=== PATIENT | male | born 1960 | race Caucasian/White ===

== ENCOUNTER 2017-02-19 14:46 | Emergency (ER) | payer SELFPAY ==
[~2017-02-19] VITALS: Ht 175.3 cm; Wt 80.0 kg
[2017-02-19 14:48] VITALS: BP 139/83; PULSE 84; RESP 17; TEMP 98.2; O2SAT 96
--- NOTE | 2017-02-19 14:51 | PD ---
Physical Exam Time Seen by Provider: 14:49 Narrative 56yo M c/o left bicep pain x couple weeks after injuring from moving a dresser. Has full ROM of extremity. Is concerned he tore his tendon. Patient seen in triage. VS reviewed. Awaiting bed placement. Data Data Last Documented VS Vital Signs Date Time Temp Pulse Resp B/P (MAP) Pulse Ox O2 Delivery O2 Flow Rate FiO2 02/19/17 14:48 98.2 84 17 139/83 (101) 96 Nasal Cannula [facility] Supervised Visit with NANI: Elisha Ohara Feb 19, 2017 14:51
--- NOTE | 2017-02-19 15:31 | PD ---
HPI Chief Complaint: Injury Time Seen by Provider: 15:21 Travel History International Travel<30 days: No Contact w/Intl Traveler<30days: No Traveled to known affect area: No History of Present Illness HPI 56-year-old male presents to emergency Department with injury to the left bicep partially 2 weeks ago while moving a desk. Patient felt a tear and noticed some ecchymosis in the area afterwards. He is to have a deformity in the bicep as well as tenderness at the injury area. Range of motion is full without weakness. Patient states the pain is constant and worse with motion. He has been using #2 ibuprofen 3-4 times daily. He has no known drug allergies. [facility] Social History Alcohol Use: Yes Tobacco Use: No Substance Use: No Allergies-Medications (Allergen,Severity, Reaction): Coded Allergies: No Known Allergies (Unverified , 02/19/17) Review of Systems Except as stated in HPI: all other systems reviewed are Neg General / Constitutional: No: Fever Eyes: No: Visual changes HENT: No: Headaches Cardiovascular: No: Chest Pain or Discomfort Respiratory: No: Shortness of Breath Gastrointestinal: No: Abdominal Pain Genitourinary: No: Dysuria Musculoskeletal: Positive: Myalgias (see history present illness), Pain, No: Limited ROM Skin: No Rash Neurologic: No: Weakness Psychiatric: No: Depression Endocrine: No: Polydipsia Hematologic/Lymphatic: No: Easy Bruising Physical Exam Narrative GENERAL: Patient is in no acute distress. SKIN: Warm and dry. Normal color. Normal turgor. No ecchymosis currently. HEAD: Atraumatic. Normocephalic. EYES: Pupils equal and round. No scleral icterus. No injection or drainage. ENT: No nasal bleeding or discharge. Mucous membranes pink and moist. Pharynx is clear. NECK: Trachea midline. Supple nontender CARDIOVASCULAR: Regular rate and rhythm. RESPIRATORY: No accessory muscle use. Clear to auscultation. Breath sounds equal bilaterally. MUSCULOSKELETAL: Extremities without clubbing, cyanosis, or edema. Patient has proximal biceps deformity consistent with rupture. Range of motion is full. Strength and sensation is normal. NEUROLOGICAL: Awake and alert. No obvious cranial nerve deficits. Motor grossly within normal limits. Five out of 5 muscle strength in the arms and legs. Normal speech. PSYCHIATRIC: Appropriate mood and affect; insight and judgment normal. Data Data Last Documented VS Vital Signs Date Time Temp Pulse Resp B/P (MAP) Pulse Ox O2 Delivery O2 Flow Rate FiO2 02/19/17 14:48 98.2 84 17 139/83 (101) 96 Nasal Cannula MDM Medical Decision Making Medical Screen Exam Complete: Yes Emergency Medical Condition: No Differential Diagnosis Left arm injury. Left biceps tendon rupture. Left arm pain. Narrative Course A medical screening exam was performed: At the time of evaluation the presenting medical condition was determined not to be of an emergent nature. The patient was given the option of receiving additional care, but declined. Patient was given options for additional community resources from which to obtain care. The Patient Has Been advised to seek medical attention for their presenting complaint. The patient has been advised to return to the ER at any time if an emergent condition develops. Condition: Stable Cricket Nguyễn Feb 19, 2017 15:31
== END 2017-02-19 15:42 | disposition left against medical advice (07) ==
LOC: NEPK 14:46
DX: M79.602 Pain in left arm (principal)
CPT/HCPCS: 99281